=== PATIENT | female | born 1990 | race Caucasian/White ===

== ENCOUNTER 2021-07-22 05:29 | Inpatient (IN) | payer BC ==
[~2021-07-22] VITALS: Ht 162.6 cm; Wt 88.9 kg
[2021-07-22] MEDS ORDERED: PROZAC 20 MG CA20 MG PO (06:03)
[2021-07-22 06:57] LABS: HEMOGLOBIN 9.8 gm/dl (12.3-15.3); RED BLOOD COUNT 3.37 M/UL (4.00-5.10); WHITE BLOOD COUNT 6.2 K/UL (4.5-11.0)
[2021-07-22] MEDS ORDERED: COLACE 100MG C100 MG PO (07:39)
[2021-07-22] MEDS ORDERED: HYDROCODON-ACE1 EAC6 PO (07:39)
[2021-07-22] MEDS ORDERED: IBUPROFEN600 MG PO (07:39)
[2021-07-23 06:47] LABS: HEMOGLOBIN 9.5 gm/dl (12.3-15.3)
== END 2021-07-24 14:25 | disposition home or self-care (01) | DRG 788 ==
LOC: OB 05:29
PROVIDERS: ADMIT Obstetrics & Gynecology
PROC: 10D00Z1 Extraction of Products of Conception, Low, Open Approach (ICD-10-PCS; principal; 2021-07-22 09:00)
DX: O34.211 Maternal care for low transverse scar from previous cesarean delivery (principal); N85.8 Other specified noninflammatory disorders of uterus; O99.02 Anemia complicating childbirth; D64.9 Anemia, unspecified; O99.824 Streptococcus B carrier state complicating childbirth; Z3A.39 39 weeks gestation of pregnancy; Z37.0 Single live birth; Z83.3 Family history of diabetes mellitus; Z82.49 Family history of ischemic heart disease and other diseases of the circulatory system
CPT/HCPCS: 81001; 82800; 85014; 85018; 85025; 85461; 86850; 86900; 86901; C9113; J0690; J1170; J1650; J2405; J2590; J2790